=== PATIENT | female | born 1990 | race Caucasian/White ===

== ENCOUNTER 2023-04-20 23:57 | Emergency (ER) | payer SELFPAY ==
[~2023-04-20] VITALS: Ht 160 cm; Wt 90.7 kg
[2023-04-21 00:09] VITALS: BP_SYST 119; PULSE 82; RESP 18; TEMP 98.3; O2SAT 97
[2023-04-21] MEDS ORDERED: LIDOCAINE PATCH 5% 1 EA TP ONE (01:00)
[2023-04-21] MEDS ORDERED: ACETAMINOPHEN 500 MG TABLET PO ONE (01:00)
[2023-04-21] MEDS ORDERED: SULF1TAB48 PO (01:10)
[2023-04-21] MEDS ORDERED: ACET-2634 PO (01:10)
[2023-04-21] MEDS ORDERED: LIDO700A30 TP (01:10)
[2023-04-21 01:40] VITALS: BP_SYST 119; PULSE 82; RESP 18; TEMP 98.3; O2SAT 97
== END 2023-04-21 01:40 | disposition home or self-care (01) ==
LOC: SED 23:57
DX: S40.222A Blister (nonthermal) of left shoulder, initial encounter (principal); T81.49XA Infection following a procedure, other surgical site, initial encounter; M25.512 Pain in left shoulder; Z79.899 Other long term (current) drug therapy; W31.81XA Contact with recreational machinery, initial encounter; Y93.I1 Activity, roller coaster riding; Y92.89 Other specified places as the place of occurrence of the external cause; Y99.8 Other external cause status
CPT/HCPCS: 73030; 99283